=== PATIENT | male | born 1985 | race African-American/Black ===

== ENCOUNTER 2016-06-19 02:16 | Emergency (ER) ==
[2016-06-19] MEDS ORDERED: HUMULIN R SUBQ ONE (02:50)
[2016-06-19] MEDS ORDERED: DIFLUCAN PO ONE (02:50)
[2016-06-19] MEDS ORDERED: ROCEPHIN IM ONE (02:51)
[2016-06-19] MEDS ORDERED: XYLOCAINE-MPF 1% INJ ONE (02:51)
--- NOTE | 2016-06-19 02:54 | PROVIDER DOCUMENTATION ---
HPI-Male Problem - General Source: patient - History of Present Illness-Male Severity in ED: reports: mild Onset/Duration: reports: 1 week ago Timing: reports: still present Context/Activities at Onset: reports: none Sexual intercourse history: reports: Less Than 2 Months Ago, Single Partner Contraception: reports: none Associated Symptoms: reports: unable to retract foreskin, penile discharge <Lorraine Marc - Last Filed: 06/19/16 02:49> <Elijah Mckinnon - Last Filed: 06/19/16 03:13> - General Chief Complaint: Male Stated Complaint: YEAST INFECTION Time Seen by Provider: 06/19/16 02:39 Allergies/Adverse Reactions: Patient Allergies Allergy/AdvReac Type Severity Reaction Status Date / Time aspirin AdvReac VOMITING Verified 06/19/16 02:46 Home Medications: Home Medication List Medication Instructions Recorded Confirmed Last Taken Type Doxycycline 100 mg PO BID #20 capsule 06/19/16 Unknown Rx Fluconazole [Diflucan] 100 mg PO DAILY #7 tablet 06/19/16 Unknown Rx Insulin Detemir [Levemir] 35 unit SQ DAILY 06/19/16 06/19/16 06/18/16 History - History of Present Illness-Male Nature of Presenting Problem: 30 year old M presents to the ED with a cc of a itchy burning skin rash. Pt states that it began 1 week and usually comes on with high blood sugar. PT states that 3 days ago he began having copious white milky discharge with painful skin retraction. PT states that he has one sexual partner and last sexual contact was 1 week ago. PT states that he tried OTC Monistat with no relief. (Lorraine Marc) Review of Systems - Adult - REVIEW OF SYSTEMS - ADULT Constitutional: denies: chills, fever Eyes: reports: no symptoms reported Ears, Nose, Mouth & Throat: reports: no symptoms reported Cardiovascular: reports: no symptoms reported Respiratory: reports: no symptoms reported Gastrointestinal: denies: nausea, vomiting Genitourinary: reports: discharge. denies: dysuria Musculoskeletal: reports: no symptoms reported Integumentary: reports: no symptoms reported Neurological: reports: no symptoms reported Psychiatric: reports: no symptoms reported Endocrine: reports: no symptoms reported Hematologic/Lymphatic: reports: no symptoms reported Allergic/Immunologic: reports: no symptoms reported All Other Systems: Reviewed and Negative <Lorraine Marc - Last Filed: 06/19/16 02:49> Past History - Adult - PAST MEDICAL HISTORY-ADULT Review of Records: reports: Nursing Assessment Review, Medications Reviewed Major Childhood Illnesses: reports: denies history Cardiovascular: reports: denies history Respiratory: reports: denies history Gastrointestinal: reports: denies history Genitourinary: reports: denies history Musculoskeletal: reports: denies history Neurological: reports: denies history Psychiatric: reports: denies history Endocrine/Immune: reports: denies history, Diabetes Other Conditions: reports: denies history - PRIOR SURGERIES/PROCEDURES Surgical/Procedure History: reports: none - PRIOR HOSPITALIZATIONS Prior Hospitalizations: reports: none - IMMUNIZATION STATUS Childhood Immunizations: See Nurse Assessment Flu Vaccine: See Nurse Assessment - FAMILY HISTORY Family History: reviewed, not pertinent - SOCIAL HISTORY Smoking: cigarettes Provider spent 3-5 mins advising pt. on dangers of tobacco.: Discussed manners to quit use, and f/u contacts for add'l counseling. Substance Use: none/never Alcohol Use Frequency: occasionally <Lorraine Marc - Last Filed: 06/19/16 02:49> Physical Exam-General - PHYSICAL EXAM-ADULT Initial Vital Signs Reviewed: Yes - CONSTITUTIONAL General Appearance: appears well, alert, no apparent distress - RESPIRATORY Respiratory: no respiratory distress - CARDIOVASCULAR Cardiovascular: regular rate, rhythm - GENITOURINARY Rectal Exam: other (copious white milky discharge with mild swelling of skin folds of penis) - SKIN Integumentary: normal color, normal turgor, warm/dry - PSYCHIATRIC Psych/Mental Status: normal mood/affect, normal thought content, normal thought process, oriented x 3 <Lorraine Marc - Last Filed: 06/19/16 02:49> Departure <Lorraine Marc - Last Filed: 06/19/16 02:49> - Departure Time of Disposition Order: 03:09 Certified Medical Emergency: Emergent <Elijah Mckinnon - Last Filed: 06/19/16 03:13> - Departure DIAGNOSIS: UTI (urinary tract infection), Urethritis Disposition: HOME 01 Condition: Stable Additional Instructions: ED Follow Up Instructions:no sex until gets recheck for std, at the health units You have been treated by a care provider in the Emergency Department. These instructions are being provided to you so you can have an understanding of how to care for yourself upon discharge. Upon discharge from the Emergency Department, you are responsible for making arrangements for follow-up care by a physician of your choice. Take all prescribed medications as directed. Return to the Emergency Department immediately for any new or worsening symptoms. You may call the Physician Referral phone number at [phone] to obtain a list of Physicians who are taking new patients.[facility] Qualifications for [facility]: * Live in [place] * 18 - 64 years of age * Have no form of health insurance * Not covered by Medicaid, Medicare, Disability benefits or VA benefits * Meet the financial guidelines In order to be screened for services, patients must first call to answer a few questions and make a screening appt: Phone #: [phone] Services Provided by [facility]: * Primary Care: treatment for acute or chronic illness in adults * INSTRUCTIONAL ASSISTANT exams * Blood work/ BP monitoring * Prescription meds (no controlled drugs) * Health education classes * Dental exams, x-rays and extractions Services that ARE NOT provided: * Orthopedic referrals * Pain management or narcotics * testing, control * Physicals or paperwork required by school, work or for legal proceedings * STD testing or treatment * Immunizations * Eye exams, hearing tests Prescriptions: Fluconazole [Diflucan] 100 mg PO DAILY #7 tablet Doxycycline 100 mg PO BID #20 capsule Attestation - Scribe Verification/Attestation Scribe:: Lorraine Marc Acting as Scribe for:: Elijah Mckinnon Scribe documention review:: This chart was documented by a scribe and accurately reflects the service the provider performed and the decisions made by the provider. <Lorraine Marc - Last Filed: 06/19/16 02:49> Physician Attestation - Physician Attestation I, the provider, attest to the following statement:: Elijah Mckinnon Physician documentation Attestation:: This documentation recorded by the scribe accurately reflects the service I personally performed and the decisions made by me. <Lorraine Marc - Last Filed: 06/19/16 02:49>
[2016-06-19 03:40] VITALS: BP 127/66
== END 2016-06-19 03:40 | disposition home or self-care (01) ==
LOC: ED 02:16
DX: N39.0 Urinary tract infection, site not specified (principal); N34.2 Other urethritis; R36.9 Urethral discharge, unspecified; R21 Rash and other nonspecific skin eruption; L29.9 Pruritus, unspecified; E11.9 Type 2 diabetes mellitus without complications; F17.210 Nicotine dependence, cigarettes, uncomplicated; Z79.4 Long term (current) use of insulin; Z71.6 Tobacco abuse counseling
CPT/HCPCS: 82948; J0696